=== PATIENT | male | born 1935 | race Caucasian/White ===

== ENCOUNTER → 2017-08-27 | Outpatient (CLI) | payer MEDICARE, BC ==
[~2017-08-27] MED LIST: 12 HOUR NASAL R15 ML NS; AMBIEN 10 MG TA10 MG PO; AMBIEN 5 MG TABL5 M1 PO; ARICEPT 5 MG TAB5 MG PO; ASPIR 8181 MG PO; ASPIRIN EC325 M1 PO; ASPIRIN325 PO; AUGMENTIN 875875 MG PO; BACTRIM DS TAB1 EACH PO; BROVANA15 MCG/2 M; BROVANA15 MCG/2 M INH; BUDESONIDE0.5 MG/2 M; BUDESONIDE0.5 MG/2 M INH; CEFDINIR300 MG PO; CENTRUM SILVER1 EAC4 PO; CIPRO500 MG PO; CRESTOR10 MG PO; CRESTOR5 MG; CRESTOR5 MG PO; DEXAMETHASONE 44 M1 PO; DIFLUCAN200 MG PO; DITROPAN; DUONEB 2.5-0.5 M3 ML; DUONEB 2.5-0.5 M3 ML INH; ENOXAPARIN40 MG/0.1 SUBQ; FLONASE 0.05%50 MCG NASAL; HYDROCHLOROTHIA25 M2 PO; IMDUR 30 MG TAB30 M1 PO; IPRAT-ALBUT 0.5-3 ML INH; IPRATROPIU0.2 MG/1 M INH; IPRATROPIUM INH; IRON325 PO; KEFLEX500 MG PO; LASIX 20 MG TAB20 MG PO; LEVAQUIN 500 M500 M4 PO; LEVAQUIN 500 M500 M5 PO; LOPRESSOR; LOPRESSOR25 PO; MUCINEX TA600 MG/TA2 PO; NAMENDA 10 MG T10 MG PO; NIACIN 500 MG500 M1 PO; NORCO 5-325 TA1 EACH PO; OMEPRAZOLE; OMEPRAZOLE40 MG PO; PAXIL 20 MG TAB20 MG PO; PERCOCET PO; PLAVIX 75 MG TA75 MG; PREDNISONE 10 M10 MG PO; PREDNISONE 5 MG5 M1 PO; PRILOSEC 20 MG20 MG PO; PRILOSEC20 MG PO; PROAIR HFA8.5 GM INH; PROTONIX; PROTONIX40 M1 PO; THEO-DUR200 MG PO; TOPROL XL50 MG PO; TRAZODONE HCL50 MG PO; TYLENOL EXTRA500 MG PO; UNICOMPLEX M TA1 TA1 PO; VITAMIN D1000 UNI1 PO; VITAMIN D3400 UNIT PO; VITAMIN E400 UNI2 PO; ZANTAC; [UNRECOGNIZED DRUG - OTHER] PO
== END ==
LOC: M.WC 10:30
DX: S41.112A Laceration without foreign body of left upper arm, initial encounter (principal); S41.101D Unspecified open wound of right upper arm, subsequent encounter; I10 Essential (primary) hypertension; J44.9 Chronic obstructive pulmonary disease, unspecified; Z85.118 Personal history of other malignant neoplasm of bronchus and lung; Z85.46 Personal history of malignant neoplasm of prostate; Z87.891 Personal history of nicotine dependence; X58.XXXA Exposure to other specified factors, initial encounter; Y93.89 Activity, other specified; Y92.89 Other specified places as the place of occurrence of the external cause; Y99.8 Other external cause status

== ENCOUNTER → 2017-08-29 | Outpatient (CLI) | payer MEDICARE, BC | LOC: M.WC 02:14 | DX: S41.101D Unspecified open wound of right upper arm, subsequent encounter (principal); S41.112D Laceration without foreign body of left upper arm, subsequent encounter; I10 Essential (primary) hypertension; M25.552 Pain in left hip; Z85.118 Personal history of other malignant neoplasm of bronchus and lung; Z85.46 Personal history of malignant neoplasm of prostate; Z87.891 Personal history of nicotine dependence; X58.XXXD Exposure to other specified factors, subsequent encounter ==

== ENCOUNTER → 2017-09-05 | Outpatient (CLI) | payer MEDICARE, BC | LOC: M.WC 02:07 | DX: S41.101D Unspecified open wound of right upper arm, subsequent encounter (principal); S41.112D Laceration without foreign body of left upper arm, subsequent encounter; I10 Essential (primary) hypertension; M25.552 Pain in left hip; J44.9 Chronic obstructive pulmonary disease, unspecified; Z85.118 Personal history of other malignant neoplasm of bronchus and lung; Z85.46 Personal history of malignant neoplasm of prostate; Z87.891 Personal history of nicotine dependence; X58.XXXD Exposure to other specified factors, subsequent encounter ==

== ENCOUNTER → 2017-09-12 | Outpatient (CLI) | payer MEDICARE, BC | LOC: M.WC 02:21 | DX: S41.101D Unspecified open wound of right upper arm, subsequent encounter (principal); S41.102D Unspecified open wound of left upper arm, subsequent encounter; M25.552 Pain in left hip; J44.9 Chronic obstructive pulmonary disease, unspecified; I10 Essential (primary) hypertension; Z85.118 Personal history of other malignant neoplasm of bronchus and lung; Z85.46 Personal history of malignant neoplasm of prostate; Z87.891 Personal history of nicotine dependence; X58.XXXD Exposure to other specified factors, subsequent encounter ==

== ENCOUNTER → 2017-09-19 | Outpatient (CLI) | payer MEDICARE, BC | LOC: M.WC 01:41 | DX: S41.101D Unspecified open wound of right upper arm, subsequent encounter (principal); S41.102D Unspecified open wound of left upper arm, subsequent encounter; J44.9 Chronic obstructive pulmonary disease, unspecified; I10 Essential (primary) hypertension; Z85.118 Personal history of other malignant neoplasm of bronchus and lung; Z85.46 Personal history of malignant neoplasm of prostate; Z87.891 Personal history of nicotine dependence; X58.XXXD Exposure to other specified factors, subsequent encounter ==

== ENCOUNTER → 2017-09-26 | Outpatient (CLI) | payer MEDICARE, BC | LOC: M.WC 01:48 | DX: S41.101D Unspecified open wound of right upper arm, subsequent encounter (principal); S41.102D Unspecified open wound of left upper arm, subsequent encounter; I10 Essential (primary) hypertension; J44.9 Chronic obstructive pulmonary disease, unspecified; Z85.118 Personal history of other malignant neoplasm of bronchus and lung; Z85.46 Personal history of malignant neoplasm of prostate; Z87.891 Personal history of nicotine dependence; X58.XXXD Exposure to other specified factors, subsequent encounter ==

== ENCOUNTER 2018-01-01 20:03 | Emergency (ER) | payer MEDICARE, BC ==
[~2018-01-01] VITALS: Ht 160 cm; Wt 55.3 kg
[~2018-01-01 20:03] MED LIST changes: -ARICEPT 5 MG TAB5 MG PO; -CIPRO500 MG PO; -NAMENDA 10 MG T10 MG PO; -PRILOSEC 20 MG20 MG PO; -TYLENOL EXTRA500 MG PO
[2018-01-01] MEDS ORDERED: ARICEPT 5 MG TAB5 MG PO (20:17)
[2018-01-01] MEDS ORDERED: PRILOSEC 20 MG20 MG PO (20:17)
[2018-01-01] MEDS ORDERED: TYLENOL EXTRA500 MG PO (20:17)
[2018-01-01 20:37] LABS: ABSOLUTE BASOPHILS 0.1 thou/uL (0.0-0.2); ABSOLUTE EOSINOPHILS 0.3 thou/uL (0.0-0.7); ABSOLUTE LYMPHOCYTES 0.9 thou/uL (0.8-5.3); ABSOLUTE MONOCYTES 0.5 thou/uL (0.0-1.2); ABSOLUTE NEUTROPHILS 3.6 thou/uL (1.6-8.1); BASOPHILS 1.1 %; EOSINOPHILS 4.9 %; HEMATOCRIT 32.3 % (42.0-52.0); LYMPHOCYTES 16.7 %; MCH 30.7 pg (26.0-34.0); MCHC 33.9 g/dL (28.0-37.0); MCV 90.3 fL (80.0-100.0); MONOCYTES 8.6 %; MPV 7.6 fl. (7.2-11.1); NUCLEATED RBCS 0 /100WBC; PLATELET COUNT* 175 thou/uL (150-400); POLYS 68.7 %; RBC 3.58 mil/uL (4.50-6.00); RDW-CV 16.6 % (10.5-14.5); WBC 5.3 thou/uL (4.0-11.0)
[2018-01-01 20:44] LABS: CALCIUM 8.6 mg/dL (8.5-10.1); CREATININE 1.4 mg/dL (0.6-1.3); POTASSIUM 4.3 mmol/L (3.5-5.1)
[2018-01-01 20:46] LABS: PROTIME 10.2 Seconds (9.20-11.50)
[2018-01-01 20:49] LABS: TOTAL BILIRUBIN 0.2 mg/dL (<0.1-1.0); TOTAL PROTEIN 5.5 g/dL (6.4-8.2)
[2018-01-02 00:15] VITALS: BP 134/56
== END 2018-01-02 00:16 | disposition home or self-care (01) ==
LOC: M.ERS 20:03
PROVIDERS: Nurse Practitioner Family
DX: S01.81XA Laceration without foreign body of other part of head, initial encounter (principal); S41.111A Laceration without foreign body of right upper arm, initial encounter; S61.511A Laceration without foreign body of right wrist, initial encounter; S80.02XA Contusion of left knee, initial encounter; S80.01XA Contusion of right knee, initial encounter; J44.9 Chronic obstructive pulmonary disease, unspecified; E78.00 Pure hypercholesterolemia, unspecified; G47.30 Sleep apnea, unspecified; I50.9 Heart failure, unspecified; Z85.118 Personal history of other malignant neoplasm of bronchus and lung; Z87.891 Personal history of nicotine dependence; Z88.6 Allergy status to analgesic agent; Z86.2 Personal history of diseases of the blood and blood-forming organs and certain disorders involving the immune mechanism; Z85.46 Personal history of malignant neoplasm of prostate; W01.0XXA Fall on same level from slipping, tripping and stumbling without subsequent striking against object, initial encounter; Y93.89 Activity, other specified; Y92.89 Other specified places as the place of occurrence of the external cause; Y99.8 Other external cause status

== ENCOUNTER → 2018-01-09 | Outpatient (CLI) | payer MEDICARE, BC ==
[~2018-01-09] MED LIST changes: +ARICEPT 5 MG TAB5 MG PO; +CIPRO500 MG PO; +NAMENDA 10 MG T10 MG PO; +PRILOSEC 20 MG20 MG PO; +TYLENOL EXTRA500 MG PO
== END ==
LOC: M.WC 05:01
DX: S01.111A Laceration without foreign body of right eyelid and periocular area, initial encounter (principal); S61.401A Unspecified open wound of right hand, initial encounter; S81.001A Unspecified open wound, right knee, initial encounter; S41.101A Unspecified open wound of right upper arm, initial encounter; S81.002A Unspecified open wound, left knee, initial encounter; I10 Essential (primary) hypertension; J44.9 Chronic obstructive pulmonary disease, unspecified; Z85.118 Personal history of other malignant neoplasm of bronchus and lung; Z85.46 Personal history of malignant neoplasm of prostate; Z87.01 Personal history of pneumonia (recurrent); Z87.891 Personal history of nicotine dependence; X58.XXXA Exposure to other specified factors, initial encounter; Y93.89 Activity, other specified; Y92.89 Other specified places as the place of occurrence of the external cause; Y99.8 Other external cause status

== ENCOUNTER 2018-01-20 12:39 | Emergency (ER) | payer MEDICARE, BC ==
[~2018-01-20] VITALS: Ht 160 cm; Wt 55.3 kg
[~2018-01-20 12:39] MED LIST changes: -CIPRO500 MG PO; -NAMENDA 10 MG T10 MG PO
[2018-01-20 13:19] LABS: ABSOLUTE BASOPHILS 0.1 thou/uL (0.0-0.2); ABSOLUTE EOSINOPHILS 0.3 thou/uL (0.0-0.7); ABSOLUTE LYMPHOCYTES 0.8 thou/uL (0.8-5.3); ABSOLUTE MONOCYTES 0.5 thou/uL (0.0-1.2); ABSOLUTE NEUTROPHILS 5.5 thou/uL (1.6-8.1); EOSINOPHILS 3.6 %; HEMATOCRIT 35.7 % (42.0-52.0); HEMOGLOBIN 12.1 gm/dL (14.0-18.0); LYMPHOCYTES 11.1 %; MCH 30.6 pg (26.0-34.0); MONOCYTES 7.2 %; MPV 7.7 fl. (7.2-11.1); NUCLEATED RBCS 0 /100WBC; PLATELET COUNT* 188 thou/uL (150-400); POLYS 77.1 %; RBC 3.97 mil/uL (4.50-6.00); RDW-CV 15.5 % (10.5-14.5); WBC 7.1 thou/uL (4.0-11.0)
[2018-01-20 13:24] LABS: CALCIUM 9.4 mg/dL (8.5-10.1); CREATININE 1.3 mg/dL (0.6-1.3); POTASSIUM 4.3 mmol/L (3.5-5.1)
[2018-01-20 13:29] LABS: ALBUMIN 3.2 g/dL (3.4-5.0); TOTAL BILIRUBIN 0.4 mg/dL (<0.1-1.0); TOTAL PROTEIN 5.9 g/dL (6.4-8.2)
[2018-01-20 14:40] VITALS: BP 113/68
--- NOTE | 2018-01-21 09:48 | EKG ---
[place] [address] ELECTROCARDIOGRAM REPORT Name: BRYSON GLASS Room: [facility]#: [id number] Admission: 01/20/18 Attend Phys: Discharge: 01/20/18 Date of : 37 Report #: [id number] THIS REPORT FOR: //name// [facility] ED Test Date: 2018-01-20 Test Time: 12:48:13 Pat Name: BRYSON GLASS Department: Room: Gender: M Compound Filler: : 1935 Requested By: Kathia Lantigua Order Number: [id number] MD: Thierry Gonzalez Measurements Intervals [place] Rate: 88 P: 93 WI: 151 QRS: 84 QRSD: 94 T: 65 QT: 422 QTc: 511 Interpretive Statements Sinus rhythm pvc and pac's noted Borderline right axis deviation Probable septal infarct, old Prolonged QT interval Compared to ECG 08/15/2017 22:02:03 Ventricular and supraventricular premature complex(es) now present Prolonged QT interval now present Sinus tachycardia no longer present Myocardial infarct finding still present Electronically Signed On 01-21-2018 9:47:56 CDT by Thierry Gonzalez [email or web address] <ELECTRONICALLY SIGNED> By: Thierry Gonzalez MD, [facility] 01/21/18 0947 1248 1248 Thierry Gonzalez MD, [facility] /EPI
== END 2018-01-20 14:42 | disposition home or self-care (01) ==
LOC: M.ERS 12:39
PROVIDERS: Personal Emergency Response Attendant
DX: R55 Syncope and collapse (principal); J44.9 Chronic obstructive pulmonary disease, unspecified; E78.00 Pure hypercholesterolemia, unspecified; G47.30 Sleep apnea, unspecified; I50.9 Heart failure, unspecified; Z85.46 Personal history of malignant neoplasm of prostate; Z85.118 Personal history of other malignant neoplasm of bronchus and lung; Z88.5 Allergy status to narcotic agent; Z87.891 Personal history of nicotine dependence; W18.39XA Other fall on same level, initial encounter; Y93.89 Activity, other specified; Y92.89 Other specified places as the place of occurrence of the external cause; Y99.8 Other external cause status

== ENCOUNTER → 2018-01-30 | Outpatient (CLI) | payer MEDICARE, BC ==
[~2018-01-30] MED LIST changes: +CIPRO500 MG PO; +NAMENDA 10 MG T10 MG PO
== END ==
LOC: M.WC 02:24
DX: S41.111D Laceration without foreign body of right upper arm, subsequent encounter (principal); I10 Essential (primary) hypertension; J44.9 Chronic obstructive pulmonary disease, unspecified; Z85.118 Personal history of other malignant neoplasm of bronchus and lung; Z85.46 Personal history of malignant neoplasm of prostate; Z87.891 Personal history of nicotine dependence; X58.XXXD Exposure to other specified factors, subsequent encounter

== ENCOUNTER 2018-04-16 17:54 | Inpatient (IN) | payer MEDICARE, BC ==
[~2018-04-16] VITALS: Ht 162.6 cm; Wt 54.4 kg
[~2018-04-16 17:54] MED LIST changes: -CIPRO500 MG PO; -NAMENDA 10 MG T10 MG PO
[2018-04-16 18:00] VITALS: BP 112/59
[2018-04-16] MEDS ORDERED: NAMENDA 10 MG T10 MG PO (18:08)
[2018-04-16] MEDS ORDERED: ARICEPT 5 MG TAB5 MG PO (18:08)
[2018-04-16 18:25] LABS: HEMATOCRIT 37.3 % (42.0-52.0); HEMOGLOBIN 12.5 gm/dL (14.0-18.0); MCH 30.3 pg (26.0-34.0); MCHC 33.6 g/dL (28.0-37.0); MCV 90.2 fL (80.0-100.0); MPV 8.1 fl. (7.2-11.1); NUCLEATED RBCS 0 /100WBC; PLATELET COUNT* 199 thou/uL (150-400); RBC 4.13 mil/uL (4.50-6.00); RDW-CV 14.5 % (10.5-14.5); WBC 21.7 thou/uL (4.0-11.0)
[2018-04-16 18:32] LABS: ANION GAP 5 mmol/L (7-16); BUN 27 mg/dL (7-18); CALCIUM 8.5 mg/dL (8.5-10.1); CHLORIDE 102 mmol/L (98-107); CO2 31 mmol/L (21-32); CREATININE 1.4 mg/dL (0.6-1.3); GLUCOSE 123 mg/dL (70-99); POTASSIUM 4.1 mmol/L (3.5-5.1); SODIUM 138 mmol/L (136-145)
[2018-04-16 18:46] LABS: ALBUMIN 3.2 g/dL (3.4-5.0); ALKALINE PHOSPHATASE 100 U/L (46-116); NT-PRO BRAIN NAT PEPTIDE 7986 pg/mL (<300); SGOT 24 U/L (15-37); SGPT 21 U/L (30-65); TOTAL BILIRUBIN 0.6 mg/dL (<0.1-1.0); TOTAL PROTEIN 6.3 g/dL (6.4-8.2); TROPONIN-I LEVEL <0.06 ng/mL (<0.06)
[2018-04-16 19:02] LABS: URINE BILIRUBIN NEGATIVE (Negative); URINE BLOOD TRACE (Negative); URINE CLARITY CLEAR; URINE COLOR YELLOW; URINE GLUCOSE-RANDOM NEGATIVE (Negative); URINE KETONES NEGATIVE (Negative); URINE LEUKOCYTES-REFLEX NEGATIVE (Negative); URINE NITRITE-REFLEX NEGATIVE (Negative); URINE PROTEIN NEGATIVE (Negative); URINE UROBILINOGEN 0.2 E.U./dl (0.2-1.0)
[2018-04-16 19:10] LABS: ABSOLUTE LYMPHOCYTES 0.2 thou/uL (0.8-5.3); ABSOLUTE MONOCYTES 1.5 thou/uL (0.0-1.2)
[2018-04-16 19:11] LABS: PLATELET ESTIMATE ADEQUATE
[2018-04-16 21:12] VITALS: BP 101/55
[2018-04-16 21:33] VITALS: BP 109/60
[2018-04-17] VITALS (7 sets, daily range): BP systolic 81–132; BP diastolic 40–76
[2018-04-17 06:25] LABS: CREATININE 1.1 mg/dL (0.6-1.3); POTASSIUM 4.2 mmol/L (3.5-5.1)
[2018-04-17 07:20] LABS: BE -1.4 mmol/L (-2 to +3); HCO3 22.8 mmol/L (22.0-26.0); PCO2 36.6 mmHg (35.0-45.0); PO2 115.4 mmHg (75.0-100.0); pH 7.413 (7.340-7.450)
[2018-04-17 13:51] LABS: SQUAMOUS 0-3 Few /LPF (0-3); URINE RBC >20 Many /HPF (0-2); URINE WBC-REFLEX 0-5 Rare /HPF (0-5)
[2018-04-17 13:52] LABS: CASTS None Seen /LPF (None Seen); MUCUS 0-3 Light strn/LPF (None Seen)
[2018-04-17 13:53] LABS: AMORPHOUS URATES Moderate /LPF (None Seen)
--- NOTE | 2018-04-17 17:08 | 2DMMODE ---
[place] [address] 2 D/M-MODE ECHOCARDIOGRAM Name: BRYSON GLASS Room: [address] IN [facility]#: [id number] Admission: 04/16/18 Attend Phys: Adalberto Young, Discharge: Date of : 37 Date of Service: 04/17/18 1707 Report #: [id number] THIS REPORT FOR: //name// APPROVED REPORT Study performed: 04/17/2018 10:30:59 EXAM: Comprehensive 2D, Doppler, and color-flow Echocardiogram Patient Location: In-Patient Room #: [facility] Status: routine BSA: 1.62 HR: 73 bpm BP: 109/52 mmHg Rhythm: NSR Other Information Study Quality: Good Indications Cardiomyopathy ams, dehydration, elevated bnp, cholecystitis 2D Dimensions LVEF(%): 70.71 (>50%) IVSd: 9.71 (7-11mm) LVOT Diam: 21.64 (18-24mm) LVDd: 36.46 mm PWd: 9.25 (7-11mm) Ascending Ao: 29.81 (22-36mm) LVDs: 22.13 (25-40mm) Aortic Root: 29.50 mm Pate's LVEF: 70.71 % Volumes Left Atrial Volume (Systole) LA ESV Index: 24.10 mL/m2 Aortic Valve AoV Peak Agapito.: 1.11 m/s AO Peak Gr.: 4.95 mmHg LVOT Max P.03 mmHg AO Mean Gr.: 3.04 mmHg LVOT Mean P.61 mmHg LVOT Max V: 0.87 m/s AO V2 VTI: 21.35 cm LVOT Mean V: 0.59 m/s MIRI (VTI): 3.39 cm2 LVOT V1 VTI: 19.68 [place] [address] 2 D/M-MODE ECHOCARDIOGRAM Name: BRYSON GLASS Room: [address] IN [facility]#: [id number] Admission: 04/16/18 Attend Phys: Adalberto Young, Discharge: Date of : 37 Date of Service: 04/17/18 1707 Report #: [id number] E/A Ratio: 1.12 MV Decel. Time: 161.61 ms MV E Max Agapito.: 0.92 m/s MV PHT: 46.87 ms MVA (PHT): 4.69 cm2 TDI E/Lateral E': 10.22 E/Medial E': 7.67 Medial E' Agapito.: 0.12 m/s Lateral E' Agapito.: 0.09 m/s Pulmonary Valve PV Peak Agapito.: 0.73 m/s PV Peak Gr.: 2.15 mmHg Tricuspid Valve RAP Estimate: 5.00 mmHg TR Peak Gr.: 33.28 mmHg RVSP: 38.28 mmHg PA Pressure: 38.28 mmHg Left Ventricle The left ventricle is normal size. mild distal anterior wall and apical hypokinesis, otherwise normal all segments There is normal left ventricular wall thickness. Left ventricular systolic function is normal. The left ventricular ejection fraction is within the normal range. LVEF is 45-50%. This study is not technically sufficient to allow evaluation of the LV diastolic function. Right Ventricle The right ventricle is normal size. The right ventricular systolic function is normal. Atria The left atrium size is normal. The right atrium size is normal. Aortic Valve Mild aortic valve sclerosis. No aortic regurgitation is present. There is no aortic valvular stenosis. Mitral Valve There is mitral annular calcification. Mild mitral regurgitation. No evidence of mitral valve stenosis. Tricuspid Valve The tricuspid valve is normal in structure. Trace tricuspid regurgitation. [place] [address] 2 D/M-MODE ECHOCARDIOGRAM Name: BRYSON GLASS Room: [address] IN .R.#: [id number] Admission: 04/16/18 Attend Phys: Adalberto Young, Discharge: Date of : 37 Date of Service: 04/17/18 1707 Report #: [id number] Pulmonic Valve The pulmonary valve is normal in structure. There is no pulmonic valvular regurgitation. Great Vessels The aortic root is normal in size. IVC is normal in size and collapses with >50% inspiration Pericardium There is no pericardial effusion. <Conclusion> LVEF is 45-50%. mild distal anterior wall and apical hypokinesis, otherwise normal all segments Mild aortic valve sclerosis. There is no aortic valvular stenosis. No aortic regurgitation is present. Mild mitral regurgitation. <ELECTRONICALLY SIGNED> By: Tyrone Juarez MD, FACC 04/17/181706 06 06 Tyrone Juarez MD, FACC /INF
[2018-04-18] VITALS: BP 106/50
[2018-04-18 04:00] VITALS: BP 107/53
--- NOTE | 2018-04-18 07:54 | CON ---
[address] [address] CONSULTATION Name: BRYSON GLASS Room: [address] IN .R.#: [id number] Admission: 04/16/18 Attend Phys: Adalberto Young MD Discharge: Date of : 37 Report #: [id number] THIS REPORT FOR: //name// CC: Adalberto Gonzalez DATE OF SERVICE: 04/17/2018 INFECTIOUS DISEASE CONSULTATION ATTENDING PHYSICIAN: Dr. Sevilla. REASON FOR EVALUATION: Acute cholecystitis. HISTORY OF PRESENT ILLNESS: Chart reviewed, patient examined. 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 Evaluation raised question of possible acute cholecystitis. It is notable he has history of pulmonary carcinoma, complicated by a right pleural effusion as well as the right hilar mass. He does admit to abdominal-related pain. Hemodynamics has generally been somewhat better he was empirically started on cefepime, metronidazole, given a dose of vancomycin, now 2/2 blood cultures positive for gram-positive cocci. ALLERGIES: LISTED TO PENICILLINS, MORPHINE, SIMVASTATIN, COLESTIPOL, AND ATORVASTATIN. CURRENT MEDICATIONS: Include cefepime, ipratropium, albuterol inhaler, multivitamin, paroxetine, metoprolol, memantine, ferrous sulfate, donepezil, pantoprazole, and trazodone. PAST MEDICAL HISTORY: As described above, history of prostate cancer, COPD complicated by emphysematous changes, O2 requiring history of sleep apnea, history of pneumonitis, chronic anemia, lung cancer, and some degree of dementia as well, I believe. SOCIAL HISTORY: Former smoker, distant ethanol use. FAMILY HISTORY: Noncontributory. REVIEW OF SYSTEMS: As above. PHYSICAL EXAMINATION: GENERAL: He appears chronically ill, undernourished. [place] [address] CONSULTATION Name: GLASSBRYSON Srinivas Room: [address] IN [facility]#: [id number] Admission: 04/16/18 Attend Phys: Adalberto Young MD Discharge: Date of : 37 Report #: [id number]. VITAL SIGNS: Temperature 97.6, pulse 63, respirations 15, blood pressure 100/45. It has been as low as 81 systolic. SKIN: Warm, suggestion of exogenous steroid use with areas of contusion, especially the upper extremities. LUNGS: Diminished breath sounds, scattered, coarse. HEART: Regular. Borderline bradycardic, has a soft systolic murmur. ABDOMEN: Tender, particularly in the right upper quadrant, distended. I do not believe there is any clear peritoneal sign. GENITOURINARY AND RECTAL: Deferred. LABORATORY DATA: Abdominal ultrasound showed cholelithiasis with additional findings suggestive of acute cholecystitis, although there is no biliary duct dilatation, right pleural effusion and specifically comments on marked circumferential mural thickening, mural edema and large gallbladder calculi identified. There is some pericholecystic fluid as well. Urinalysis 0-5 white cells. Blood cultures 2/2 with gram-positive cocci. Chest x-ray, moderate chronic pulmonary changes. ABGs: pH 7.413, pCO2 of 36.6, pO2 of 115.4 on 2 liters. Electrolytes: Sodium 139, potassium 4.2, chloride 106, bicarb is 29, BUN and creatinine 28 and 1.1, estimated GFR of 64. CT abdomen and pelvis suggest acute cholecystitis, atherosclerosis. CT of the chest, no evidence of pulmonary embolus, persistent right pleural effusion, right hilar mass, severe emphysema. CT of the head, no acute intracranial process. Lactic acid of 1.0. Liver functions otherwise unremarkable. Albumin 3.2, total protein 6.3, estimated GFR 49. ASSESSMENT: Acute cholecystitis in a patient who is certainly quite tenuous with very little reserve, I suspect, noted Surgery to evaluate. We will continue therapy. Await identification of the gram-positive cocci in the blood cultures. He may be a candidate for percutaneous approach. He certainly is at risk for nosocomial-related infectious complications as well and we will have to monitor expectantly, whether he can navigate with incentive spirometry is unclear. We will discuss with physician. <ELECTRONICALLY SIGNED> By: Faisal Noland MD 04/18/18 0754 1607 09Faisal Noland MD /nt
[2018-04-18 08:00] VITALS: BP 104/55
[2018-04-18 09:35] LABS: HEMOGLOBIN 10.1 gm/dL (14.0-18.0); MCH 30.8 pg (26.0-34.0); MCHC 33.7 g/dL (28.0-37.0); MCV 91.4 fL (80.0-100.0); MPV 8.6 fl. (7.2-11.1); RBC 3.28 mil/uL (4.50-6.00); RDW-CV 14.5 % (10.5-14.5); WBC 9.5 thou/uL (4.0-11.0)
[2018-04-18 10:09] LABS: ALBUMIN 2.3 g/dL (3.4-5.0); CALCIUM 8.6 mg/dL (8.5-10.1); CREATININE 1.2 mg/dL (0.6-1.3); POTASSIUM 3.7 mmol/L (3.5-5.1); TOTAL BILIRUBIN 0.4 mg/dL (<0.1-1.0); TOTAL PROTEIN 5.1 g/dL (6.4-8.2)
--- NOTE | 2018-04-18 10:22 | EKG ---
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 : 1935 Requested By: Adriano Kamara Order Number: [id number] MD: Tyrone Juarez Measurements Intervals [place] Rate: 87 P: 83 NM: 155 QRS: 85 QRSD: 94 T: 78 QT: 388 QTc: 467 Interpretive Statements Sinus rhythm Anteroseptal infarct, age indeterminate Baseline wander in lead(s) V6 Compared to ECG 01/20/2018 12:48:13 Ventricular premature complex(es) no longer present Prolonged QT interval no longer present Myocardial infarct finding still present Electronically Signed On 04-18-2018 10:22:01 CDT by Tyrone Juarez [email or web address] <ELECTRONICALLY SIGNED> By: Tyrone Juarez MD, FACC 04/18/18 1022 1800 1800 Tyrone Juarez MD, FAC /EPI
[2018-04-18 12:51] VITALS: BP 109/54
[2018-04-18 19:25] VITALS: BP 117/66
[2018-04-19] VITALS: BP 119/72
[2018-04-19 04:00] VITALS: BP 121/65
[2018-04-19 04:45] LABS: ABSOLUTE EOSINOPHILS 0.2 thou/uL (0.0-0.7); ABSOLUTE LYMPHOCYTES 0.5 thou/uL (0.8-5.3); ABSOLUTE MONOCYTES 0.6 thou/uL (0.0-1.2); BASOPHILS 0.5 %; EOSINOPHILS 3.1 %; HEMATOCRIT 29.2 % (42.0-52.0); HEMOGLOBIN 9.9 gm/dL (14.0-18.0); LYMPHOCYTES 7.3 %; MCH 30.8 pg (26.0-34.0); MCV 90.5 fL (80.0-100.0); MONOCYTES 8.1 %; MPV 8.2 fl. (7.2-11.1); NUCLEATED RBCS 0 /100WBC; PLATELET COUNT* 160 thou/uL (150-400); RBC 3.22 mil/uL (4.50-6.00); RDW-CV 14.2 % (10.5-14.5); WBC 7.4 thou/uL (4.0-11.0)
[2018-04-19 04:58] LABS: MAGNESIUM 1.4 mg/dL (1.8-2.4); PHOSPHORUS* 3.2 mg/dL (2.5-4.9)
[2018-04-19 05:01] LABS: ALBUMIN 2.1 g/dL (3.4-5.0); CALCIUM 8.1 mg/dL (8.5-10.1); CREATININE 1.2 mg/dL (0.6-1.3); POTASSIUM 3.5 mmol/L (3.5-5.1); TOTAL BILIRUBIN 0.4 mg/dL (<0.1-1.0); TOTAL PROTEIN 4.8 g/dL (6.4-8.2)
[2018-04-19 08:00] VITALS: BP 109/53
[2018-04-19 11:59] VITALS: BP 132/61
--- NOTE | 2018-04-19 12:42 | CON ---
[address] [address] CONSULTATION Name: BRYSON GLASS Room: [address] IN M.R.#: [id number] Admission: 04/16/18 Attend Phys: Adalberto Young MD Discharge: Date of : 37 Report #: [id number] THIS REPORT FOR: //name// CC: Adalberto Gonzalez DATE OF SERVICE: 04/18/2018 Consult has been requested by Dr. Sevilla. INDICATION FOR CONSULTATION: History of lung cancer and hypoxia. HISTORY OF PRESENT ILLNESS: An 82-year-old gentleman with past medical history includes a history of small cell carcinoma of the lung. He follows with a core mounter out of [place]. The patient has had radiation as well as chemotherapy in the past. He is reported to be currently in remission. The patient also has a history of severe COPD. He is on long-term oxygen therapy. He, however, is not on long-term prednisone therapy. He lives at the [facility]. At this time, the patient is admitted with abdominal pain. He says that essentially this is only new complaint. He is complaining of pain in the epigastrium as well as right upper quadrant. He has not had any nausea, vomiting, diarrhea or constipation. He is not complaining of heartburn at this time. He has had a workup performed including an abdominal CT as well as ultrasound and he has been diagnosed with acute cholecystitis. At this time, evaluation is being performed for possible drainage of the gallbladder percutaneously versus performing surgery. The patient does have positive blood cultures and he is on broad spectrum antibiotics prescribed by the ID service. As far as his respiratory complaints are concerned, he does have shortness of breath at rest as well as on exertion. He describes this as being at baseline. He does not have any significant sputum production. He does have a cough. He states this is at baseline. He does not have chest pain. There are no upper respiratory complaints. There is no swelling of lower extremities. There is no calf pain. The patient does have some joint pains, which remain at baseline. The patient also was noted to be lying down at about 45 degrees and eating. REVIEW OF SYSTEMS: He answers to the negative for 12 questions for review of systems except as mentioned above. PAST MEDICAL HISTORY: Small cell carcinoma of the lung. He is reported to be currently in remission; however, I am not aware of any recent PET scans performed. COPD, on long-term oxygen, coronary artery disease status post MT. He has just had an echocardiogram performed, [place] [address] CONSULTATION Name: BRYSON GLASS Room: [address] IN [facility].#: [id number] Admission: 04/16/18 Attend Phys: Adalberto Young MD Discharge: Date of : 36 Report #: [id number] ejection fraction of 45-50% with a pulmonary artery systolic of 38. The patient had mild renal insufficiency on initial presentation, which since then, appears to be resolving. Also, history of chronic anemia, early stages of dementia, prostate cancer, obstructive sleep apnea is mentioned on the records. The patient is on oxygen. He is not reported to be on positive airway pressure therapy. Hyperlipidemia. SOCIAL HISTORY: He has an extensive history of smoking. The patient says he has not smoked since the s. His family thinks he quit smoking about 10 years ago. Extensive history of smoking in the past. No known history of heavy alcohol use or illegal drug use. CURRENT MEDICATIONS: The list is in [employer], reviewed. FAMILY HISTORY: Colon cancer and lung cancer. ALLERGIES: PENICILLINS, MORPHINE, SIMVASTATIN, LIPITOR AND COLESTID ARE MENTIONED ALLERGIES NOTED; however, the patient is tolerating cephalosporins without any problems. PHYSICAL EXAMINATION: GENERAL: He is lying down in bed and having a late lunch, which appears to be clear liquids only. I set him up, he did not have any abdominal pain increased as a result. He is a thin lean gentleman with a body mass index decreased to 20.8. VITAL SIGNS: He has a pulse of 64 and a blood pressure of 109/54. He is on 2 liters nasal cannula, is saturating 100%. His respiratory rate is 15. He is afebrile. HEENT: Head is normocephalic and atraumatic. Pupils are equal and reactive. There is no throat erythema. NECK: Does not show raised JVP, asymmetry, mass or lymph nodes. CHEST: Symmetrical expansion on inspection and palpation. On auscultation, breath sounds are bilaterally equal, decreased. I do not hear any added sounds. HEART: Regular, no murmur. ABDOMEN: Soft. There is mild tenderness in the epigastrium as well as the right upper quadrant. LOWER EXTREMITIES: Show no edema, no calf tenderness. SKIN: Dry and intact. NEUROLOGICAL: Moves all extremities bilaterally equally and spontaneously with no focal deficit identified. LABORATORY DATA: The patient's CT chest was reviewed. He has a small pleural effusion on the right side. He also has evidence of previous malignancy, which appears to be in remission as well as infiltrates. These are not significantly changed compared with his baseline. I reviewed the patient's CTA chest report as well as films are compared with the previous CT as well. The patient's chest [facility] [address] [place] [address] CONSULTATION Name: BRYSON GLASS Room: [address] IN M.R.#: [id number] Admission: 04/16/18 Attend Phys: Adalberto Young MD Discharge: Date of : 37 Report #: [id number] x-ray is also reviewed. CT abdomen and pelvis and CTA and abdominal ultrasound reports are reviewed. The patient's lab work which does show a drop in hemoglobin over the last 2 days, but he is in a positive balance as well as chemistries which show initial acute renal insufficiency, now [facility], [facility]. Arterial blood gas, which shows a normal pCO2 of 36.6 in [facility], reviewed. ASSESSMENT AND PLAN: 1. Acute cholecystitis/preoperative pulmonary evaluation. The patient does have a history of lung cancer as well as oxygen dependent chronic obstructive pulmonary disease; therefore, he is higher than average risk for performing a cholecystectomy. I understand the plan is to perform cystostomy tube at this time, optimize the patient and then consider a cholecystectomy later. I feel that this is reasonable. I will follow along and then provide further recommendations. When he does undergo a cholecystectomy, he may benefit at that point with corticosteroids in the perioperative period. Also, recommend while he is in the hospital here, do not allow him to eat or drink while he is lying down as this poses an aspiration risk. 2. Small cell carcinoma lung/pulmonary infiltrate/pleural effusion. I do not see a major change on the patient's CT compared with a previous CAT scan. The likelihood is that the findings are old and related to his malignancy. No definite evidence of pneumonia; however, cannot be ruled out due to the presence of old changes. Not known to me if recent workup for his malignancy has been performed. If not already performed in the last several months, then once he has recovered from his cholecystitis and performing a repeat PET scan in the next few months could be a consideration. The patient is on broad spectrum antibiotics, ordered by the ID service. 3. Chronic obstructive pulmonary disease, oxygen dependent. The patient is on nebulized bronchodilators. He does not appear to be actively bronchospastic at this time. He is also on nebulized budesonide. 4. Chronic systolic congestive heart failure. There is a mild reduction in left ventricular ejection fraction as mentioned above. The patient does not, however, appear to be fluid overloaded at this time. 5. Acute renal insufficiency. This is already resolving. 6. Aspiration risk. Recommend strict aspiration precautions. <ELECTRONICALLY SIGNED> By: Josr Thomason MD 04/19/18 1242 1511 0556Josr Thomason MD /nt
[2018-04-19 16:22] VITALS: BP 141/64
[2018-04-19 19:20] VITALS: BP 143/72
[2018-04-20] VITALS: BP 132/81
[2018-04-20 04:00] VITALS: BP 123/64
[2018-04-20 05:23] LABS: MCH 30.5 pg (26.0-34.0); MCHC 33.5 g/dL (28.0-37.0); MCV 91.1 fL (80.0-100.0); MPV 8.2 fl. (7.2-11.1); RBC 3.62 mil/uL (4.50-6.00); RDW-CV 14.2 % (10.5-14.5); WBC 5.8 thou/uL (4.0-11.0)
[2018-04-20 05:40] LABS: ALBUMIN 2.3 g/dL (3.4-5.0); CALCIUM 8.3 mg/dL (8.5-10.1); CREATININE 1.2 mg/dL (0.6-1.3); PHOSPHORUS* 3.6 mg/dL (2.5-4.9); POTASSIUM 3.8 mmol/L (3.5-5.1); TOTAL BILIRUBIN 0.3 mg/dL (<0.1-1.0); TOTAL PROTEIN 5.7 g/dL (6.4-8.2)
[2018-04-20 08:00] VITALS: BP 106/53
[2018-04-20 12:50] VITALS: BP 92/57
[2018-04-20 16:00] VITALS: BP 128/60
[2018-04-20 20:33] VITALS: BP 128/56
[2018-04-21 04:53] LABS: HEMATOCRIT 30.4 % (42.0-52.0); HEMOGLOBIN 10.3 gm/dL (14.0-18.0); MCH 30.7 pg (26.0-34.0); MCHC 33.8 g/dL (28.0-37.0); MCV 90.7 fL (80.0-100.0); MPV 7.6 fl. (7.2-11.1); RBC 3.35 mil/uL (4.50-6.00); RDW-CV 14.4 % (10.5-14.5); WBC 7.4 thou/uL (4.0-11.0)
[2018-04-21 05:28] LABS: ALBUMIN 2.3 g/dL (3.4-5.0); CREATININE 1.1 mg/dL (0.6-1.3); MAGNESIUM 1.6 mg/dL (1.8-2.4); PHOSPHORUS* 2.1 mg/dL (2.5-4.9); POTASSIUM 3.3 mmol/L (3.5-5.1); TOTAL BILIRUBIN 0.3 mg/dL (<0.1-1.0); TOTAL PROTEIN 5.2 g/dL (6.4-8.2)
[2018-04-21 08:30] VITALS: BP 126/61; BP 133/71
[2018-04-21 12:00] VITALS: BP 107/50
[2018-04-21 12:08] VITALS: BP 107/50
[2018-04-21 16:00] VITALS: BP 146/83
[2018-04-21 16:20] VITALS: BP 146/83
[2018-04-21 19:59] VITALS: BP 131/58
[2018-04-22] VITALS: BP 134/72
[2018-04-22 04:00] VITALS: BP 130/74
[2018-04-22 05:12] LABS: HEMATOCRIT 29.2 % (42.0-52.0); HEMOGLOBIN 9.9 gm/dL (14.0-18.0); MCH 30.9 pg (26.0-34.0); MCHC 33.7 g/dL (28.0-37.0); MCV 91.5 fL (80.0-100.0); MPV 7.7 fl. (7.2-11.1); RBC 3.19 mil/uL (4.50-6.00); RDW-CV 14.2 % (10.5-14.5); WBC 7.4 thou/uL (4.0-11.0)
[2018-04-22 06:00] LABS: CALCIUM 8.5 mg/dL (8.5-10.1); CREATININE 1.1 mg/dL (0.6-1.3); MAGNESIUM 1.7 mg/dL (1.8-2.4); PHOSPHORUS* 2.7 mg/dL (2.5-4.9); POTASSIUM 3.8 mmol/L (3.5-5.1)
[2018-04-22 07:50] VITALS: BP 117/52
[2018-04-22 11:39] VITALS: BP 104/56
[2018-04-22 15:41] VITALS: BP 117/59
[2018-04-22 20:00] VITALS: BP 134/72
[2018-04-23] VITALS (9 sets, daily range): BP systolic 89–128; BP diastolic 56–79
[2018-04-23 04:39] LABS: ABSOLUTE BASOPHILS 0.1 thou/uL (0.0-0.2); ABSOLUTE EOSINOPHILS 0.4 thou/uL (0.0-0.7); ABSOLUTE LYMPHOCYTES 0.8 thou/uL (0.8-5.3); ABSOLUTE MONOCYTES 0.6 thou/uL (0.0-1.2); ABSOLUTE NEUTROPHILS 5.9 thou/uL (1.6-8.1); EOSINOPHILS 5.6 %; HEMATOCRIT 29.5 % (42.0-52.0); HEMOGLOBIN 10.1 gm/dL (14.0-18.0); LYMPHOCYTES 10.5 %; MCH 30.9 pg (26.0-34.0); MCHC 34.1 g/dL (28.0-37.0); MCV 90.6 fL (80.0-100.0); MPV 7.7 fl. (7.2-11.1); NUCLEATED RBCS 0 /100WBC; PLATELET COUNT* 212 thou/uL (150-400); POLYS 74.9 %; RBC 3.25 mil/uL (4.50-6.00); RDW-CV 14.3 % (10.5-14.5); WBC 7.9 thou/uL (4.0-11.0)
[2018-04-23 04:56] LABS: ALBUMIN 2.3 g/dL (3.4-5.0); MAGNESIUM 1.8 mg/dL (1.8-2.4); POTASSIUM 3.9 mmol/L (3.5-5.1); TOTAL BILIRUBIN 0.2 mg/dL (<0.1-1.0)
[2018-04-24] VITALS: BP 137/74
[2018-04-24 04:00] VITALS: BP 126/67
[2018-04-24 04:39] LABS: CALCIUM 8.1 mg/dL (8.5-10.1); CREATININE 1.1 mg/dL (0.6-1.3); MAGNESIUM 1.6 mg/dL (1.8-2.4); POTASSIUM 3.8 mmol/L (3.5-5.1)
[2018-04-24 08:43] VITALS: BP 136/64
[2018-04-24 12:00] VITALS: BP 117/58
[2018-04-24 12:32] VITALS: BP 136/64
--- NOTE | 2018-04-24 12:34 | EEG ---
[address] [address] EEG STUDY REPORT Name: BRYSON GLASS Room: [address] IN .R.#: [id number] Admission: 04/16/18 Attend Phys: Adalberto Young MD Discharge: Date of : 37 Report #: [id number] THIS REPORT FOR: //name// CC: Adalberto Gonzalez DATE OF SERVICE: 04/20/2018 INDICATION FOR STUDY: This patient is being evaluated for altered mental status. DESCRIPTION OF PROCEDURE: EEG was done by placing the electrode by standard 10-20 system of electrode placement. Both referential and sequential montages were used for recording. Background activity in this patient's EEG is about 8 Hz and 30 microvolt. It is a symmetrical activity. The patient went to sleep that is associated with bilaterally symmetrical sleep spindle and vertex sharp waves. Photic stimulation is unremarkable. Throughout the record, no active epileptiform activity was noticed. IMPRESSION: This patient's electroencephalogram is intermixed with some theta range slowing on both sides. That is a nonspecific abnormality, which can occur with encephalopathy, effect of psychotropic medication, dementia, etc. Clinical correlation is recommended. <ELECTRONICALLY SIGNED> By: Livan Elias MD 04/24/18 1234 0754 0839Livan Elias MD /ashwin
--- NOTE | 2018-04-24 12:34 | CON ---
[address] [address] CONSULTATION Name: BRYSON GLASS Room: [address] IN M.R.#: [id number] Admission: 04/16/18 Attend Phys: Adalberto Young MD Discharge: Date of : 36 Report #: [id number] THIS REPORT FOR: //name// CC: Adalberto Gonzalez DATE OF SERVICE: 04/19/2018 HISTORY OF PRESENT ILLNESS: This is an 82-year-old male patient who does not provide any reliable history. The is there and she provides some history but he states her memory is not very good either. I was asked to see the patient because of memory issues. Initially, the said the memory problem is going on for a few months but then, she said it is going on for a few year. She estimates 1-2 years he has not driven during that time. He forgets short term things more than he does the long-term and he thinks the memory problem is severe and it has become even more severe in the last couple of months and especially in last few days. REVIEW OF SYSTEMS: When I asked him what is the patient in for, he states he does not remember. Record indicates that this patient is in for cholecystitis. He is being seen by Pulmonary. He had encephalopathy and was hemodynamically stable and had some respiratory difficulty. The record appeared to indicate that he has a history of pulmonary carcinoma. Review of systems also indicates COPD, history of prostate cancer, sleep apnea, lung cancer and from all clinical indication, it looks like he has dementia. He appeared to be on long-term oxygen therapy. He also has some renal insufficiency and chronic anemia. He denies any history of stroke and this was his relevant 14-point review of system. PAST MEDICAL HISTORY: Positive for lung cancer. FAMILY HISTORY: Negative for early age stroke. SOCIAL HISTORY: He states he does not abuse alcohol. PHYSICAL EXAMINATION: NEUROLOGICAL: Indicate he is alert. He is responsive. He is not oriented. His memory is very poor on my examination today, but his speech looks intact. His cranial nerve examination 2 through 12 looks mostly unremarkable. His movement is symmetrical. I think he can appreciate the position sense. There is no meningeal sign. There is no carotid bruit. LUNGS: He does have respiratory difficulty. VITAL SIGNS: Indicate a blood pressure 141/64, respirations 16, pulse is 78 and temperature is 98.2. [place] [address] CONSULTATION Name: BRYSON GLASS Room: [address]#: [id number] Admission: 04/16/18 Attend Phys: Adalberto Young MD Discharge: Date of : 36 Report #: [id number] LABORATORY DATA: His hemoglobin is 9.9. RADIOLOGICAL DATA: He did have a CT scan and it does not show any acute changes. IMPRESSION: The patient appeared to have significant dementia. On top of that, he has superimposed encephalopathy. He will need workup but as an outpatient. RECOMMENDATIONS: 1. TSH. 2. Vitamin B12. 3. EEG. 4. For rest of the workup, he should follow up as an outpatient because dementia workup will be difficult in the presence of encephalopathy. <ELECTRONICALLY SIGNED> By: Livan Elias MD 04/24/18 1234 1817 58Livan Elias MD /nt
[2018-04-24] MEDS ORDERED: CIPRO500 MG PO (14:15)
== END 2018-04-24 15:00 | DRG 871 ==
LOC: M.ERS 17:54 → M.TBA-ER 20:32 → M.2W 20:32
PROVIDERS: Emergency Medicine Emergency Medical Services; Internal Medicine Critical Care Medicine; ADMIT Internal Medicine
PROC: B31N1ZZ Fluoroscopy of Other Upper Arteries using Low Osmolar Contrast (ICD-10-PCS; principal; 2018-04-18)
PROC: 0F9430Z Drainage of Gallbladder with Drainage Device, Percutaneous Approach (ICD-10-PCS; principal; 2018-04-18)
DX: A40.9 Streptococcal sepsis, unspecified (principal); J18.9 Pneumonia, unspecified organism; N17.0 Acute kidney failure with tubular necrosis; G93.41 Metabolic encephalopathy; E43 Unspecified severe protein-calorie malnutrition; I50.43 Acute on chronic combined systolic (congestive) and diastolic (congestive) heart failure; I13.0 Hypertensive heart and chronic kidney disease with heart failure and stage 1 through stage 4 chronic kidney disease, or unspecified chronic kidney disease; J44.1 Chronic obstructive pulmonary disease with (acute) exacerbation; K81.0 Acute cholecystitis; J98.11 Atelectasis; E78.00 Pure hypercholesterolemia, unspecified; E86.0 Dehydration; F03.90 Unspecified dementia, unspecified severity, without behavioral disturbance, psychotic disturbance, mood disturbance, and anxiety; I25.10 Atherosclerotic heart disease of native coronary artery without angina pectoris; G47.33 Obstructive sleep apnea (adult) (pediatric); E78.5 Hyperlipidemia, unspecified; I25.5 Ischemic cardiomyopathy; N18.9 Chronic kidney disease, unspecified; D64.9 Anemia, unspecified; E87.6 Hypokalemia; R91.8 Other nonspecific abnormal finding of lung field; E83.42 Hypomagnesemia; Z68.20 Body mass index [BMI] 20.0-20.9, adult; Z85.46 Personal history of malignant neoplasm of prostate; Z85.118 Personal history of other malignant neoplasm of bronchus and lung; Z88.6 Allergy status to analgesic agent; Z88.0 Allergy status to penicillin; Z88.8 Allergy status to other drugs, medicaments and biological substances; Z87.891 Personal history of nicotine dependence; I25.2 Old myocardial infarction; Z80.0 Family history of malignant neoplasm of digestive organs; Z80.1 Family history of malignant neoplasm of trachea, bronchus and lung; Z99.81 Dependence on supplemental oxygen; Z82.49 Family history of ischemic heart disease and other diseases of the circulatory system

== ENCOUNTER 2018-05-01 11:36 | Emergency (ER) | payer MEDICARE, BC ==
[~2018-05-01] VITALS: Ht 162.6 cm; Wt 59.9 kg
[~2018-05-01 11:36] MED LIST changes: +CIPRO500 MG PO; +NAMENDA 10 MG T10 MG PO
[2018-05-01 12:29] LABS: HEMATOCRIT 28.8 % (42.0-52.0); HEMOGLOBIN 9.6 gm/dL (14.0-18.0); MCH 30.5 pg (26.0-34.0); MCHC 33.2 g/dL (28.0-37.0); MCV 91.8 fL (80.0-100.0); MPV 7.5 fl. (7.2-11.1); NUCLEATED RBCS 0 /100WBC; PLATELET COUNT* 274 thou/uL (150-400); RBC 3.14 mil/uL (4.50-6.00); RDW-CV 15.1 % (10.5-14.5); WBC 7.6 thou/uL (4.0-11.0)
[2018-05-01 12:34] LABS: CALCIUM 8.1 mg/dL (8.5-10.1); CREATININE 1.1 mg/dL (0.6-1.3)
[2018-05-01 12:38] LABS: ALBUMIN 2.6 g/dL (3.4-5.0); MAGNESIUM 1.4 mg/dL (1.8-2.4); TOTAL BILIRUBIN 0.2 mg/dL (<0.1-1.0); TOTAL PROTEIN 5.6 g/dL (6.4-8.2)
[2018-05-01 12:52] LABS: BE 1.1 mmol/L (-2 to +3); HCO3 25.2 mmol/L (22.0-26.0); PCO2 38.1 mmHg (35.0-45.0); PO2 178.2 mmHg (75.0-100.0); pH 7.438 (7.340-7.450)
[2018-05-01 13:05] LABS: ABSOLUTE BASOPHILS 0.2 thou/uL (0.0-0.2); ABSOLUTE EOSINOPHILS 0.2 thou/uL (0.0-0.7); ABSOLUTE LYMPHOCYTES 0.7 thou/uL (0.8-5.3); ABSOLUTE MONOCYTES 0.5 thou/uL (0.0-1.2); ABSOLUTE NEUTROPHILS 6.1 thou/uL (1.6-8.1); METAMYELOCYTES 1 %; PLATELET ESTIMATE ADEQUATE
[2018-05-01 14:23] LABS: URINE BILIRUBIN NEGATIVE (Negative); URINE BLOOD NEGATIVE (Negative); URINE CLARITY CLEAR; URINE COLOR YELLOW; URINE GLUCOSE-RANDOM NEGATIVE (Negative); URINE KETONES NEGATIVE (Negative); URINE LEUKOCYTES-REFLEX NEGATIVE (Negative); URINE NITRITE-REFLEX NEGATIVE (Negative); URINE PROTEIN NEGATIVE (Negative); URINE SPECIFIC GRAVITY 1.025 (1.005-1.030); URINE UROBILINOGEN 0.2 E.U./dl (0.2-1.0)
[2018-05-01 16:16] VITALS: BP 133/70
--- NOTE | 2018-05-01 16:31 | EKG ---
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: Javier GUTIERREZ : 1935 Requested By: Kathia Lantigua Order Number: [id number] Chrissy MD: Michael Watts Measurements Intervals [place] Rate: 64 P: 78 ME: 155 QRS: 69 QRSD: 86 T: 65 QT: 422 QTc: 436 Interpretive Statements Sinus rhythm Low voltage, extremity leads Anteroseptal infarct, old Compared to ECG 04/16/2018 18:00:51 Low QRS voltage now present Myocardial infarct finding still present Electronically Signed On 05-01-2018 16:30:45 CDT by Michael Watts [email or web address] <ELECTRONICALLY SIGNED> By: Michael Watts MD, [facility] 05/01/18 1630 1143 1143 Michael Watts MD, [facility] /EPI
== END 2018-05-01 16:10 | disposition home or self-care (01) ==
LOC: M.ERS 11:36
PROVIDERS: Personal Emergency Response Attendant
DX: E83.42 Hypomagnesemia (principal); R10.12 Left upper quadrant pain; J44.9 Chronic obstructive pulmonary disease, unspecified; E78.00 Pure hypercholesterolemia, unspecified; G47.30 Sleep apnea, unspecified; I50.22 Chronic systolic (congestive) heart failure; Z87.891 Personal history of nicotine dependence; Z88.0 Allergy status to penicillin; Z88.6 Allergy status to analgesic agent; Z88.1 Allergy status to other antibiotic agents; Z88.8 Allergy status to other drugs, medicaments and biological substances; Z85.46 Personal history of malignant neoplasm of prostate; Z87.01 Personal history of pneumonia (recurrent); Z86.2 Personal history of diseases of the blood and blood-forming organs and certain disorders involving the immune mechanism; Z85.118 Personal history of other malignant neoplasm of bronchus and lung

== ENCOUNTER 2018-08-18 02:51 | Inpatient (IN) | payer MEDICARE, BC ==
[~2018-08-18] VITALS: Ht 170.2 cm; Wt 63.5 kg
[2018-08-18] MEDS ORDERED: AMITIZA8 MCG PO (03:02)
[2018-08-18] MEDS ORDERED: CYMBALTA60 MG PO (03:03)
[2018-08-18] MEDS ORDERED: COLACE100 MG PO (03:04)
[2018-08-18] MEDS ORDERED: HYDRALAZINE 2525 MG PO (03:04)
[2018-08-18] MEDS ORDERED: SYMBICORT160 MCG/4. INH (03:05)
[2018-08-18 03:08] LABS: HCO3 25.5 mmol/L (22.0-26.0)
[2018-08-18 03:11] LABS: PCO2 60.6 mmHg (35.0-45.0); PO2 212.9 mmHg (75.0-100.0); pH 7.242 (7.340-7.450)
[2018-08-18 03:45] LABS: HEMATOCRIT 40.7 % (42.0-52.0); HEMOGLOBIN 13.5 gm/dL (14.0-18.0); MCH 30.4 pg (26.0-34.0); MCHC 33.2 g/dL (28.0-37.0); MCV 91.5 fL (80.0-100.0); MPV 8.4 fl. (7.2-11.1); NUCLEATED RBCS 0 /100WBC; PLATELET COUNT* 218 thou/uL (150-400); RBC 4.44 mil/uL (4.50-6.00); RDW-CV 15.8 % (10.5-14.5); WBC 11.7 thou/uL (4.0-11.0)
[2018-08-18 04:08] LABS: ANION GAP 10 mmol/L (7-16); BUN 30 mg/dL (7-18); CALCIUM 8.8 mg/dL (8.5-10.1); CHLORIDE 106 mmol/L (98-107); CO2 25 mmol/L (21-32); CREATININE 1.4 mg/dL (0.6-1.3); GLUCOSE 190 mg/dL (70-99); POTASSIUM 3.9 mmol/L (3.5-5.1); SODIUM 141 mmol/L (136-145)
[2018-08-18 04:09] LABS: PROTIME 10.7 Seconds (9.20-11.50)
[2018-08-18 04:20] LABS: ALBUMIN 3.2 g/dL (3.4-5.0); ALKALINE PHOSPHATASE 101 U/L (46-116); NT-PRO BRAIN NAT PEPTIDE 2548 pg/mL (<300); SGOT 19 U/L (15-37); SGPT 17 U/L (30-65); TOTAL BILIRUBIN 0.4 mg/dL (<0.1-1.0); TROPONIN-I LEVEL <0.06 ng/mL (<0.06)
[2018-08-18 06:28] LABS: HCO3 21.1 mmol/L (22.0-26.0); PO2 91.8 mmHg (75.0-100.0)
[2018-08-18 06:31] LABS: PCO2 53.6 mmHg (35.0-45.0); pH 7.212 (7.340-7.450)
[2018-08-18 06:34] LABS: ABSOLUTE EOSINOPHILS 0.2 thou/uL (0.0-0.7); ABSOLUTE LYMPHOCYTES 0.7 thou/uL (0.8-5.3); ABSOLUTE MONOCYTES 0.4 thou/uL (0.0-1.2); ABSOLUTE NEUTROPHILS 10.4 thou/uL (1.6-8.1); PLATELET ESTIMATE ADEQUATE
--- NOTE | 2018-08-18 13:43 | EKG ---
[place] [address] ELECTROCARDIOGRAM REPORT Name: BRYSON GLASS Room: [place] [address] ADM IN [facility].#: [id number] Admission: 08/18/18 Attend Phys: Carine Kitchen MD Discharge: Date of : 37 Report #: [id number] THIS REPORT FOR: //name// [facility] ED Test Date: 2018-08-18 Test Time: 03:25:44 Pat Name: BRYSON GLASS Department: Room: [place] [address] Gender: M Underwriting Consultant: : 1935 Requested By: Avril Mistry Order Number: [id number] Chrissy MD: Fabrice Saenz Measurements Intervals [place] Rate: 152 P: 0 MS: 135 QRS: 94 QRSD: 85 T: 76 QT: 346 QTc: 551 Interpretive Statements Supraventricular tachycardia Anterior infarct, old Compared to ECG 05/01/2018 11:43:34 Sinus rhythm no longer present Myocardial infarct finding still present Electronically Signed On 08-18-2018 13:43:41 BENEFITS COUNSELOR by Fabrice Saezn [email or web address] <ELECTRONICALLY SIGNED> By: Fabrice Saenz MD, [facility] 08/18/18 1343 0325 0325 Fabrice Saenz MD, FAC /EPI
--- NOTE | 2018-08-18 13:44 | EKG ---
[place] [address] ELECTROCARDIOGRAM REPORT Name: BRYSON GLASS Room: [place] [address] ADM IN [facility].#: [id number] Admission: 08/18/18 Attend Phys: Carine Kitchen MD Discharge: Date of : 37 Report #: [id number] THIS REPORT FOR: //name// [facility] ED Test Date: 2018-08-18 Test Time: 05:36:35 Pat Name: BRYSON GLASS Department: Room: [place] [address] Gender: M Assembly Machine Tool Setter: : 1935 Requested By: Avril Mistry Order Number: [id number] Chrissy MD: Fabrice Saenz Measurements Intervals [place] Rate: 130 P: 89 SC: 153 QRS: 92 QRSD: 83 T: -88 QT: 302 QTc: 444 Interpretive Statements Sinus tachycardia Right axis deviation Low voltage, extremity leads Anteroseptal infarct, old, possible Compared to ECG 05/01/2018 11:43:34 Right-axis deviation now present Sinus rhythm no longer present Myocardial infarct finding still present Electronically Signed On 08-18-2018 13:44:36 SWISS TYPE SCREW MACHINE OPERATOR by Fabrice Saenz [email or web address] <ELECTRONICALLY SIGNED> By: Fabrice Saenz MD, FACC 08/18/18 1344 0536 0536 Fabrice Saenz MD, FAC /EPI
--- NOTE | 2018-08-18 13:44 | EKG ---
[place] [address] ELECTROCARDIOGRAM REPORT Name: BRYSON GLASS Room: [place] [address] [address] [facility]#: [id number] Admission: 08/18/18 Attend Phys: Carine Kitchen MD Discharge: Date of : 37 Report #: [id number] THIS REPORT FOR: //name// [facility] ED Test Date: 2018-08-18 Test Time: 04:19:13 Pat Name: BRYSON GLASS Department: Room: [facility] Gender: Audio Engineer: : 1935 Requested By: Avril Mistry Order Number: [id number] MD: Thierry Gonzalez Measurements Intervals [place] Rate: 142 P: 86 TN: 74 QRS: 93 QRSD: 87 T: 80 QT: 365 QTc: 561 Interpretive Statements Supraventricular tachycardia Right axis deviation Low voltage, extremity leads septal infarct, old ST depression, probably rate related Electronically Signed On 08-18-2018 13:44:29 MILL HAND PLATE MILL by Thierry Gonzalez [email or web address] <ELECTRONICALLY SIGNED> By: Thierry Gonzalez MD, [facility] 08/18/18 1344 0419 0419 Thierry Gonzalez MD, FACC /EPI
--- NOTE | 2018-08-18 13:44 | EKG ---
[place] [address] ELECTROCARDIOGRAM REPORT Name: BRYSON GLASS Room: [place] [address] ADM IN [facility].#: [id number] Admission: 08/18/18 Attend Phys: Carine Kitchen MD Discharge: Date of : 37 Report #: [id number] THIS REPORT FOR: //name// [facility] ED Test Date: 2018-08-18 Test Time: 03:40:17 Pat Name: BRYSON GLASS Department: Room: [place] [address] Gender: M Director Of Research And Development: : 1935 Requested By: Avril Mistry Order Number: [id number] Chrissy MD: Fabrice Saenz Measurements Intervals [place] Rate: 139 P: 91 NM: 121 QRS: 90 QRSD: 97 T: 84 QT: 384 QTc: 584 Interpretive Statements Sinus tachycardia Anteroseptal infarct, old, possible Repolarization abnormality, prob rate related Prolonged QT interval Compared to ECG 05/01/2018 11:43:34 Early repolarization now present Prolonged QT interval now present Myocardial infarct finding still present Electronically Signed On 08-18-2018 13:44:18 CORRECTIONS NURSE by Fabrice Saenz [email or web address] <ELECTRONICALLY SIGNED> By: Fabrice Saenz MD, FACC 08/18/18 1344 0340 0340 Fabrice Saenz MD, FAC /EPI
--- NOTE | 2018-08-18 13:45 | EKG ---
[place] [address] ELECTROCARDIOGRAM REPORT Name: BRYSON GLASS Room: [place] [address] ADM IN [facility]#: [id number] Admission: 08/18/18 Attend Phys: Carine Kitchen MD Discharge: Date of : 37 Report #: [id number] THIS REPORT FOR: //name// [facility] ED Test Date: 2018-08-18 Test Time: 06:54:20 Pat Name: BRYSON GLASS Department: Room: [place] [address] Gender: M Flat Screen Worker: : 1935 Requested By: Avril Mistry Order Number: [id number] Chrissy MD: Thierry Gonzalez Measurements Intervals [place] Rate: 155 P: 0 IA: QRS: 96 QRSD: 85 T: 76 QT: 349 QTc: 561 Interpretive Statements Incomplete analysis due to missing data in precordial lead(s) Supraventricular tachycardia Right axis deviation Low voltage, extremity leads septal infarct, old Missing lead(s): V6 Electronically Signed On 08-18-2018 13:45:45 ALLOCATIONS CLERK by Thierry Gonzalez [email or web address] <ELECTRONICALLY SIGNED> By: Thierry oGnzalez MD, [facility] 08/18/18 1345 0654 0654 Thierry Gonzalez MD, [facility] /EPI
--- NOTE | 2018-08-18 13:45 | EKG ---
[place] [address] ELECTROCARDIOGRAM REPORT Name: BRYSON GLASS Room: [place] [address] ADM IN [facility].#: [id number] Admission: 08/18/18 Attend Phys: Carine Kitchen MD Discharge: Date of : 37 Report #: [id number] THIS REPORT FOR: //name// [facility] ED Test Date: 2018-08-18 Test Time: 06:42:42 Pat Name: BRYSON GLASS Department: Room: [place] [address] Gender: M Sign Builder Supervisor: : 1935 Requested By: Avril Mistry Order Number: [id number] Chrissy MD: Fabrice Saenz Measurements Intervals [place] Rate: 152 P: 71 GA: 208 QRS: 98 QRSD: 107 T: 77 QT: 360 QTc: 573 Interpretive Statements Incomplete analysis due to missing data in precordial lead(s) Supraventricular tachycardia Low voltage, extremity leads Anteroseptal infarct, old, possible Missing lead(s): V6 Compared to ECG 05/01/2018 11:43:34 Sinus rhythm no longer present Myocardial infarct finding still present Electronically Signed On 08-18-2018 13:45:16 CRIMINAL RESEARCHER by Fabrice Saenz [email or web address] <ELECTRONICALLY SIGNED> By: Fabrice Saenz MD, FACC 08/18/18 1345 0642 0642 Fabrice Saenz MD, FACC /EPI
--- NOTE | 2018-08-18 13:45 | EKG ---
[place] [address] ELECTROCARDIOGRAM REPORT Name: BRYSON GLASS Room: [place] [address] ADM IN [facility].#: [id number] Admission: 08/18/18 Attend Phys: Carine Kitchen MD Discharge: Date of : 37 Report #: [id number] THIS REPORT FOR: //name// [facility] ED Test Date: 2018-08-18 Test Time: 07:29:08 Pat Name: BRYSON GLASS Department: Room: [place] [address] Gender: M Underground Miner: : 1935 Requested By: Avril Mistry Order Number: [id number] MD: Fabrice Saenz Measurements Intervals [place] Rate: 107 P: 97 IN: 183 QRS: 98 QRSD: 82 T: 81 QT: 301 QTc: 402 Interpretive Statements Incomplete analysis due to missing data in precordial lead(s) Sinus tachycardia Right axis deviation Low voltage, extremity leads Anteroseptal infarct, old, possible Nonspecific T abnormalities, lateral leads Missing lead(s): V6 Compared to ECG 05/01/2018 11:43:34 Right-axis deviation now present T-wave abnormality now present Myocardial infarct finding still present Electronically Signed On 08-18-2018 13:45:44 DEDICATED REGIONAL DRIVER by Fabrice Saenz [email or web address] <ELECTRONICALLY SIGNED> By: Fabrice Saenz MD, [facility] 08/18/18 1345 0729 Fabrice Saenz MD, [facility] /EPI
[2018-08-18 16:01] VITALS: BP 0/0
--- NOTE | 2018-08-19 07:14 | CON ---
[address] [address] CONSULTATION Name: BRYSON GLASS Room: [place] [address] ADM IN [facility]#: [id number] Admission: 08/18/18 Attend Phys: Carine Kitchen MD Discharge: Date of : 37 Report #: [id number] THIS REPORT FOR: //name// CC: Shala Kitchen DATE OF SERVICE: 08/18/2018 PULMONARY CONSULTATION LOCATION: ER bed 2. He is going to room #205 up on PCU. ATTENDING PHYSICIAN: Shala Cassidy MD. PRIMARY CARE PHYSICIAN: Dutch Gonzalez MD. INDICATION FOR CONSULTATION: Acute respiratory failure, severe COPD. HISTORY OF PRESENT ILLNESS: The patient is an 83-year-old male, prior smoker, admitted from the senior living facility for worsening short of air. The patient has been more short of breath for the past 2-3 days. He has been more short of breath, was seen this morning, he was tachycardic in 140. He was given rounds of adenosine x 2, but then he had some burst SVT, then it was sinus tachycardia of 130-140, blood pressure is in the 130s. He denies chest pain. He has been markedly short of breath with respiratory rates in the 28-32 range. He was placed on BiPAP on 60% for dyspnea. He is saturating a little bit better. The patient is a DNR/DNI. Other than that, he is unresponsive. The patient's and son where here previously, they are not here currently as I am seeing the patient. PAST MEDICAL HISTORY: He has history of severe COPD, oxygen and steroid dependent; has a history of lung cancer and previous pleural effusion on the right. He has had previous episodes of respiratory failure. I think BiPAP dependent. He was oxygen dependent at the senior living facility at 2-3 liters, sometimes going up to 5 liters. ALLERGIES: INCLUDED ATORVASTATIN (LIPITOR), COLESTIPOL, MORPHINE, PENICILLIN, SIMVASTATIN. OUTPATIENT MEDICATIONS: Included budesonide 2 mL inhaled b.i.d., DuoNeb nebulizers 4 times a day, oxygen at 4 liters, Aricept 10 mg daily for short-term memory, Namenda 10 mg b.i.d. Amitiza 8 mcg p.o. b.i.d., Cymbalta 60 mg daily, hydralazine 25 mg q.i.d. for hypertension, omeprazole [place] [address] CONSULTATION Name: BRYSON GLASS Room: [address] IN [facility]#: [id number] Admission: 08/18/18 Attend Phys: Carine Kitchen MD Discharge: Date of : 37 Report #: [id number] PAST SURGICAL HISTORY: Includes prostate CA, right middle lobe lung CA, nasal septal fracture, lung contusion in the past. FAMILY HISTORY: Positive for heart disease in mother and father. Negative for premature pulmonary disease. SOCIAL HISTORY: Tobacco use in the past, 40-50 pack years. I believe he quit 5 years ago. Denies any alcohol or illicit drug use. Lives at a senior living facility. His and son are durable [place] of district attorney. The patient is a DNR/DNI. REVIEW OF SYSTEMS: A 14-point review of systems was unable due to the respiratory distress on the BiPAP machine. PHYSICAL EXAMINATION: GENERAL: The patient was alert and oriented when he is first in the Emergency Room, he is not very responsive at this time, he is more short of breath, breathing with the BiPAP machine. VITAL SIGNS: Currently his blood pressure was 120/56 dropped to 77/50 and is now back up to 105/50, heart rate 130s, respirations are 32-36 and labored, he is currently on BiPAP; temperature is 36.4 degrees. He is 5 feet 10 inches tall, weight 63 kilograms or 138 pounds, BMI is ____, frail appearing 83-year-old male in moderate distress. HEENT: Mucous membranes appear dry. NECK: Supple, without nodes. No increased jugular venous pressure. He has a Port-A-Cath in his right. CHEST: He has marked purpura and thinning of his skin. He has bilateral rhonchi and expiratory wheeze. CARDIOVASCULAR: Shows sinus tachycardia with decreased heart tones. Heart rate is 130s. No S3 is noted. ABDOMEN: Soft, without masses or megaly. EXTREMITIES: He has chronic venous stasis changes. Poor peripheral pulses 0-1+. NEUROLOGIC: He will withdraw to stimuli. LABORATORY DATA: From the Emergency Room around 4:00 or 5:00 this morning on 08/18/2018 hemoglobin is 13, white count 11,700, normal differential, absolute lymphocytes are low at 700. Sodium is 141, potassium 3.9, chloride 106, carbon dioxide is 25, BUN is 30, creatinine is 1.4, glucose is 190. NT-proBNP is 2548 and albumin is 3.2. ABGs most recently on 80% BiPAP / with a backup rate of 16 showed a pO2 of 91, pH 7.21, pCO2 is 53, bicarbonate is 22 and a sat of 95%, carboxyhemoglobin 0.3. Previous pH early this morning was 7.24 with a pCO2 of 60 and a pO2 greater than 200. Chest x-ray shows moderate COPD, right hilar fullness with scarring and possible old right hilar mass, right lower lobe atelectasis versus pneumonitis. [place] [id number] CONSULTATION Name: BRYSON GLASS Room: [address] IN [facility].#: [id number] Admission: 08/18/18 Attend Phys: Carine Kitchen MD Discharge: Date of : 37 Report #: [id number] IMPRESSION: 1. Acute hypoxic and hypercarbic respiratory failure. 2. Severe chronic obstructive pulmonary disease. 3. Right hilar right middle lobe lung cancer, possibly in remission. 4. End-stage disease. PLAN: We will keep the patient comfortable. He appears in moderate respiratory distress. We can try some fluids and keep him on the BiPAP currently, keep him on his breathing treatments, short burst of steroids and we will see if we can make this man more comfortable. Prognosis is quite guarded at this time. This has been a 34-minute critical care consult. <ELECTRONICALLY SIGNED> By: Mohamud Kingsley MD 08/19/18 0714 1239 1513Antingrid Kingsley MD /nt
== END 2018-08-18 16:01 | DRG 871 ==
LOC: M.ERS 02:51 → M.TBA-ER 07:00
PROVIDERS: Emergency Medicine; ADMIT Family Medicine
PROC: 5A09357 Assistance with Respiratory Ventilation, Less than 24 Consecutive Hours, Continuous Positive Airway Pressure (ICD-10-PCS; principal; 2018-08-18)
DX: A41.9 Sepsis, unspecified organism (principal); J18.9 Pneumonia, unspecified organism; J96.22 Acute and chronic respiratory failure with hypercapnia; J96.21 Acute and chronic respiratory failure with hypoxia; J44.1 Chronic obstructive pulmonary disease with (acute) exacerbation; J44.0 Chronic obstructive pulmonary disease with (acute) lower respiratory infection; I50.22 Chronic systolic (congestive) heart failure; I47.1 Supraventricular tachycardia; Z51.5 Encounter for palliative care; F03.90 Unspecified dementia, unspecified severity, without behavioral disturbance, psychotic disturbance, mood disturbance, and anxiety; N18.9 Chronic kidney disease, unspecified; Z66 Do not resuscitate; D64.9 Anemia, unspecified; E78.00 Pure hypercholesterolemia, unspecified; Z88.5 Allergy status to narcotic agent; Z88.8 Allergy status to other drugs, medicaments and biological substances; Z85.118 Personal history of other malignant neoplasm of bronchus and lung; Z88.0 Allergy status to penicillin; Z82.49 Family history of ischemic heart disease and other diseases of the circulatory system; Z85.46 Personal history of malignant neoplasm of prostate; Z79.899 Other long term (current) drug therapy; Z92.21 Personal history of antineoplastic chemotherapy